=== PATIENT | female | born 1925 | race Caucasian/White ===

== ENCOUNTER 2016-11-08 13:13 | Emergency (ER) | payer OTHER, MEDICARE ==
[~2016-11-08] VITALS: Ht 160 cm; Wt 76.4 kg
[2016-11-08 14:18] LABS: HEMATOCRIT 36.1 % (36.0-46.0); MCH 33.4 PG (29.0-34.0); MCHC 34.3 G/DL (30.0-36.0); MCV 97.3 FL (83-99); MEAN PLAT.VOLUME 8.6 uM^3 (9.5-12.4); PLATELET COUNT 177 K/uL (156-360); RBC DIS.WIDTH-CV 12.9 % (11.8-14.6); RBC DIS.WIDTH-SD 46.3 % (39-53); RED BLOOD COUNT 3.71 M/uL (3.80-5.20); WHITE BLOOD COUNT 5.2 K/uL (4.1-10.2)
[2016-11-08 14:26] LABS: CHLORIDE 107 mEq/L (99-109); POTASSIUM 3.6 mEq/L (3.7-5.4); SODIUM 134 mEq/L (136-147)
[2016-11-08 14:29] LABS: GLUCOSE 113 mg/dL (70-99)
[2016-11-08 14:30] LABS: ANION GAP 7 MEQ/L (2-14)
[2016-11-08 14:31] LABS: TOTAL BILIRUBIN 1.6 mg/dL (0.0-1.0)
[2016-11-08 14:32] LABS: ALKALINE PHOSPHATASE 91 IU/L (3-129); GFR ESTIMATE (CALCULATED) 45 mL/min/
[2016-11-08 14:33] LABS: UREA NITROGEN (BUN) 15 mg/dL (9-23)
[2016-11-08 14:57] LABS: LIPASE 19 U/L (1.0-51.0)
[2016-11-08 17:30] LABS: ADD MIUA? YES; BILIRUBIN NEGATIVE; BLOOD NEGATIVE; COLOR YELLOW ((YELLOW)); GLUCOSE (STRIP) NEGATIVE; KETONES NEGATIVE; LEUKOCYTES TRACE; NITRITE NEGATIVE; PROTEIN (STRIP) NEGATIVE; SPECIFIC GRAVITY 1.004 (1.000-1.030); UROBILINOGEN 0.2 MG/DL (0.2-1.0)
[2016-11-08 17:36] LABS: BACTERIA RARE /HPF; EPITHELIAL CELLS 2+ /HPF; MUCUS TRACE /LPF; RED BLOOD CELLS 0-5 /HPF (0-5); UCUL ADDED? NO; WHITE BLOOD CELLS 0-5 /HPF (0-5)
[2016-11-08] MEDS ORDERED: ZOFRAN4 MG PO (18:44)
[2016-11-08 19:08] VITALS: BP 143/63
== END 2016-11-08 19:09 | disposition home or self-care (01) ==
LOC: EME 13:13
DX: R19.7 Diarrhea, unspecified (principal); I10 Essential (primary) hypertension
CPT/HCPCS: 80053; 81003; 83605; 83690; 85027; 87493; 87506; 99281; 99285; J7030